=== PATIENT | male | born 1995 | race Caucasian/White ===

== ENCOUNTER → 2021-06-10 | Outpatient (CLI) | payer OTHER ==
[~2021-06-10] MED LIST: homeopathic med
[2021-06-10 12:13] LABS: BASO # 0.02 K/mm3 (0.02-0.10); EOS # 0.06 K/mm3 (0.04-0.40); EOS % 0.9 % (0.0-4.0); HEMATOCRIT 43.3 % (42.0-52.0); HEMOGLOBIN 14.6 g/dL (13.5-18.0); LYMPH# 1.74 K/mm3 (1.50-4.00); MEAN CELL VOLUME 89 fl (78-100); MEAN CORPUSCULAR HEMOGLOBIN 30 pg (27-31); MEAN CORPUSCULAR HGB CONC 34 g/dL (33-37); MEAN PLATELET VOLUME 10.3 fl (7.4-10.4); MONO # 0.51 K/mm3 (0.20-0.80); NEU # 4.32 K/mm3 (1.40-6.50); PLATELET COUNT 279 K/mm3 (130-400); RED BLOOD COUNT 4.89 M/mm3 (4.20-5.60); RED CELL DISTRIBUTION WIDTH 12.7 % (11.5-14.5); WHITE BLOOD COUNT 6.7 K/mm3 (4.8-10.8)
[2021-06-10 12:58] LABS: POTASSIUM 4.5 mmol/L (3.5-5.1)
[2021-06-10 12:59] LABS: ALBUMIN 4.6 g/dL (3.5-5.0)
[2021-06-10 13:00] LABS: CALCIUM 9.9 mg/dL (8.3-10.5)
[2021-06-10 13:01] LABS: TOTAL PROTEIN 7.1 g/dL (6.4-8.3)
[2021-06-10 13:03] LABS: TOTAL BILIRUBIN 0.3 mg/dL (0.2-1.2)
== END ==
LOC: RAD 09:03 → LAB 09:03
PROVIDERS: Internal Medicine
DX: Z00.00 Encounter for general adult medical examination without abnormal findings (principal); M54.9 Dorsalgia, unspecified; M25.551 Pain in right hip

== ENCOUNTER → 2021-06-12 | Outpatient (CLI) | payer OTHER ==
[~2021-06-12] MED LIST changes: +AMPHETAMINE SAL20 M1 PO; +CELECOXIB200 M1 PO; +PREGABALIN50 MG PO
== END ==
LOC: LAB 13:44
DX: R79.89 Other specified abnormal findings of blood chemistry (principal)

== ENCOUNTER → 2021-06-17 | Outpatient (CLI) | payer OTHER ==
[2021-06-17 22:33] LABS: FOLLICLE STIMULATING HORMONE 1.8 mIU/mL (1.0-12.0); LUTENIZING HORMONE 3.4 mIU/mL (0.6-12.1); PROLACTIN AMS 18.9 ng/mL (3.5-19.4)
== END ==
LOC: RAD 08:10 → LAB 08:10
PROVIDERS: Internal Medicine
DX: E05.90 Thyrotoxicosis, unspecified without thyrotoxic crisis or storm (principal); M54.50 Low back pain, unspecified; F90.0 Attention-deficit hyperactivity disorder, predominantly inattentive type; R79.89 Other specified abnormal findings of blood chemistry

== ENCOUNTER 2021-07-11 17:33 | Emergency (ER) | payer OTHER ==
[~2021-07-11 17:33] MED LIST changes: -AMPHETAMINE SAL20 M1 PO; -CELECOXIB200 M1 PO; -PREGABALIN50 MG PO
[2021-07-11 17:43] VITALS: BP 130/110
[2021-07-11] MEDS ORDERED: PREGABALIN50 MG PO (17:50)
[2021-07-11] MEDS ORDERED: AMPHETAMINE SAL20 M1 PO (17:51)
[2021-07-11] MEDS ORDERED: CELECOXIB200 M1 PO (17:51)
== END 2021-07-11 19:24 | disposition home or self-care (01) ==
LOC: ED 17:33
DX: M54.2 Cervicalgia (principal); R51.9 Headache, unspecified; M54.9 Dorsalgia, unspecified; Z28.310 Unvaccinated for COVID-19; V43.52XA Car driver injured in collision with other type car in traffic accident, initial encounter; Y92.410 Unspecified street and highway as the place of occurrence of the external cause
CPT/HCPCS: J1885

== ENCOUNTER → 2022-01-22 | Outpatient (CLI) | payer OTHER ==
[~2022-01-22] MED LIST changes: +AMPHETAMINE SAL20 M1 PO; +CELECOXIB200 M1 PO; +PREGABALIN50 MG PO
== END ==
LOC: RAD 15:21
DX: M54.50 Low back pain, unspecified (principal)

== ENCOUNTER → 2022-11-17 | Outpatient (CLI) | payer OTHER | LOC: LAB 10:40 | DX: J02.9 Acute pharyngitis, unspecified (principal); Z20.822 Contact with and (suspected) exposure to COVID-19 ==

== ENCOUNTER → 2023-04-10 | Outpatient (CLI) | payer OTHER ==
[~2023-04-10] MED LIST changes: +CYCLOBENZAPRINE10 M1 PO
[2023-04-10 16:52] LABS: BASO # 0.03 K/mm3 (0.02-0.10); EOS # 0.06 K/mm3 (0.04-0.40); EOS % 0.8 % (0.0-4.0); HEMATOCRIT 41.1 % (42.0-52.0); LYMPH# 2.05 K/mm3 (1.50-4.00); MEAN CELL VOLUME 86 fl (78-100); MEAN CORPUSCULAR HEMOGLOBIN 29 pg (27-31); MEAN CORPUSCULAR HGB CONC 34 g/dL (33-37); MEAN PLATELET VOLUME 8.8 fl (7.4-10.4); MONO # 0.57 K/mm3 (0.20-0.80); NEU # 4.41 K/mm3 (1.40-6.50); PLATELET COUNT 287 K/mm3 (130-400); RED CELL DISTRIBUTION WIDTH 12.1 % (11.5-14.5); WHITE BLOOD COUNT 7.1 K/mm3 (4.8-10.8)
[2023-04-10 16:59] LABS: ALBUMIN 4.8 g/dL (3.5-5.0)
[2023-04-10 17:00] LABS: CALCIUM 9.7 mg/dL (8.3-10.5)
[2023-04-10 17:02] LABS: TOTAL PROTEIN 7.2 g/dL (6.4-8.3)
[2023-04-10 17:03] LABS: TOTAL BILIRUBIN 0.26 mg/dL (0.2-1.2)
== END ==
LOC: LAB 16:29
PROVIDERS: Internal Medicine
DX: Z00.00 Encounter for general adult medical examination without abnormal findings (principal)

== ENCOUNTER → 2023-08-25 | Outpatient (CLI) | payer OTHER ==
[2023-09-02 05:37] LABS: VITAMIN B1 117.9 nmol/L (())
== END ==
LOC: LAB 16:29
PROVIDERS: Internal Medicine
DX: K90.9 Intestinal malabsorption, unspecified (principal); R20.2 Paresthesia of skin